=== PATIENT | female | born 1995 | race Caucasian/White ===

== ENCOUNTER 2024-06-05 17:03 | Inpatient (IN) | payer OTHER ==
[~2024-06-05 17:03] MED LIST: Bupivacaine 0.25% 10 ML SDV ONE
[2024-06-05] MEDS ORDERED: Sodium Chloride 0.9% 10 ML Syringe FLUSH PRN (17:10)
[2024-06-05] MEDS ORDERED: Lidocaine 1% 50 ML MDV INJECT PRN (17:10)
[2024-06-05 17:31] LABS: BASOPHILS PERCENT AUTO 0.2 % (0.0-1.0); EOSINOPHILS ABSOLUTE AUTO 0.1 K/mm3 (0.0-0.4); HEMATOCRIT 41.3 % (37.0-47.0); HEMOGLOBIN 13.9 gm/dl (12.0-16.0); IMMATURE GRAN ABSOLUTE AUTO 0.02 K/mm3 (0.00-0.05); IMMATURE GRAN PERCENT AUTO 0.2 % (0.0-0.4); LYMPHOCYTES ABSOLUTE AUTO 2.5 K/mm3 (1.0-4.8); LYMPHOCYTES PERCENT AUTO 25.1 % (24.0-44.0); MEAN CORPUSCULAR HEMOGLOBIN 30.1 pg (28.0-32.0); MEAN CORPUSCULAR HGB CONC 33.7 g/dl (32.0-36.0); MEAN CORPUSCULAR VOLUME 89.4 fl (83.0-99.0); MEAN PLATELET VOLUME 11.3 fl (9.4-12.3); MONOCYTES PERCENT AUTO 10.4 % (0.0-8.0); NEUTROPHILS ABSOLUTE AUTO 6.3 K/mm3 (1.8-7.7); NEUTROPHILS PERCENT AUTO 63.1 % (41.0-71.0); PLATELET COUNT,PLT 245 K/mm3 (150-400); RED BLOOD CELL COUNT 4.62 M/mm3 (4.10-5.30); WHITE BLOOD CELL COUNT,WBC 9.92 K/mm3 (3.9-11.3)
[2024-06-05] MEDS ORDERED: Acetaminophen 325 MG Tab PO PRN (17:47)
[2024-06-05 18:10] LABS: CREATININE 0.7 mg/dL (0.55-1.02); EST CRCL DRUG DOSING (CG) 121.69 mL/min
[2024-06-05] MEDS: Misoprostol 25 MCG (1/4 of 100 MCG) Tab VAG PRN (18:44)
[2024-06-05 21:02] LABS: CREATININE,URINE RAND 135.7 mg/dL (30.0-125.0); PROTEIN CREATININE RATIO,URINE 351.5 mg/g (0-149); PROTEIN,URINE RANDOM 47.7 mg/dL (0.0-11.8)
[2024-06-05] MEDS: Sodium Chloride 0.9% 10 ML Syringe FLUSH SCH (22:36)
[2024-06-06] MEDS: Misoprostol 25 MCG (1/4 of 100 MCG) Tab VAG ONE ×2 (06:41→07:12)
[2024-06-06] MEDS ORDERED: diphenhydrAMINE 50 MG/ML SDV IVPUSH PRN (10:13)
[2024-06-06] MEDS ORDERED: ePHEDrine 50 MG/ML SDV IVPUSH PRN (10:13)
[2024-06-06] MEDS: Nalbuphine 10 MG/1 ML Vial IVPUSH PRN (11:01)
[2024-06-06] MEDS: Lactated Ringers 1,000 ML IV SCH (11:07)
[2024-06-06] MEDS: Oxytocin/0.9 % Sodium Chloride 30 UNIT/500 ML BAG IV SCH (11:09)
[2024-06-06] MEDS: Bupivacaine/fentaNYL/NS 100 ML Bag EPIDUR PRN (14:50)
[2024-06-06] MEDS: fentaNYL 100 MCG/2 ML SDV EPIDUR PRN (14:50)
[2024-06-06] MEDS: Ondansetron 4 MG/2 ML SDV IVPUSH PRN (15:39)
[2024-06-07] MEDS: Misoprostol 200 MCG Tab PO STA (00:41)
[2024-06-07] MEDS ORDERED: Misoprostol 200 MCG Tab BUCCAL STA (00:42)
[2024-06-07] MEDS: Oxytocin/0.9 % Sodium Chloride 30 UNIT/500 ML BAG IV SCH (00:45)
[2024-06-07] MEDS: Carboprost Tromethamine 250 MCG/1 mL Vial IM ONE (00:45)
[2024-06-07] MEDS ORDERED: Docusate Sodium 100 MG Cap PO PRN (01:19)
[2024-06-07] MEDS ORDERED: Acetaminophen 325 MG Tab PO PRN (01:19)
[2024-06-07] MEDS: Atropine/Diphenoxylate 0.025-2.5 MG Tab PO PRN (01:32)
[2024-06-07] MEDS: Ibuprofen 600 MG Tab PO SCH ×2 (01:32→15:11)
[2024-06-07] MEDS: Witch Hazel Medicated Pads 40/Jar TOP PRN (02:03)
[2024-06-07] MEDS: Benzocaine/Menthol 20%-0.5% Spray 78 GM Cannister TOP PRN (02:04)
[2024-06-07] MEDS: Tranexamic Acid 1,000 MG/10 ML Vial ONE (02:51)
[2024-06-07] MEDS: Sertraline 50 MG Tab PO SCH (08:35)
== END 2024-06-08 11:38 | disposition home or self-care (01) | DRG 806 ==
LOC: JD.OBCHECK 17:03 → JD.OB 17:05 → JD.OBCHECK 20:05 → JD.OB 20:06 → OBSVTOIN 06-07 00:21 → JD.OB 06-07 00:22
PROVIDERS: ADMIT Obstetrics & Gynecology; ATTEND Obstetrics & Gynecology
PROC: 10E0XZZ Delivery of Products of Conception, External Approach (ICD-10-PCS; principal; 2024-06-07)
PROC: 10907ZC Drainage of Amniotic Fluid, Therapeutic from Products of Conception, Via Natural or Artificial Opening (ICD-10-PCS; 2024-06-07)
PROC: 3E033VJ Introduction of Other Hormone into Peripheral Vein, Percutaneous Approach (ICD-10-PCS; 2024-06-07)
PROC: 0HQ9XZZ Repair Perineum Skin, External Approach (ICD-10-PCS; 2024-06-07)
PROC: 0UQMXZZ Repair Vulva, External Approach (ICD-10-PCS; 2024-06-07)
PROC: 3E0R3BZ Introduction of Anesthetic Agent into Spinal Canal, Percutaneous Approach (ICD-10-PCS; 2024-06-07)
PROC: 00HU33Z Insertion of Infusion Device into Spinal Canal, Percutaneous Approach (ICD-10-PCS; 2024-06-07)
PROC: 10H07YZ Insertion of Other Device into Products of Conception, Via Natural or Artificial Opening (ICD-10-PCS; 2024-06-07)
DX: O99.344 Other mental disorders complicating childbirth (principal); O72.1 Other immediate postpartum hemorrhage; Z37.0 Single live birth; Z3A.38 38 weeks gestation of pregnancy; F41.9 Anxiety disorder, unspecified; O70.0 First degree perineal laceration during delivery; O71.82 Other specified trauma to perineum and vulva; O14.04 Mild to moderate pre-eclampsia, complicating childbirth
CPT/HCPCS: 36415; 51702; 59025; 59409; 82565; 82570; 84156; 84450; 84460; 85025; 86592; 86850; 86900; 86901; A9270-GY; J0665; J2300; J2405; J3010; J3490; J7120; J7999